=== PATIENT | male | born 1940 | race Caucasian/White ===

== ENCOUNTER 2023-12-25 18:42 | Emergency (ER) | payer OTHER, MEDICAID ==
[~2023-12-25] VITALS: Ht 175.3 cm; Wt 79.4 kg
[~2023-12-25 18:42] MED LIST: NYST5ORA PO
[2023-12-25 18:48] VITALS: TEMP 98.3
[2023-12-25 19:06] LABS: BASOPHILS % (AUTO) 0.3 % (0.0-2.0); EOSINOPHILS # (AUTO) 0.1 K/uL (0.0-0.7); EOSINOPHILS % (AUTO) 1.1 % (0.0-6.0); HEMATOCRIT 37 % (39-51); HEMOGLOBIN 12.1 g/dL (13.5-17.5); LYMPHOCYTES # (AUTO) 2.1 K/uL (0.8-4.8); LYMPHOCYTES % (AUTO) 21.2 % (20.0-44.0); MEAN CORPUSCULAR HEMOGLOBIN 28 PG (26.0-33.0); MEAN CORPUSCULAR HGB CONC 32 g/dl (31.0-36.0); MEAN CORPUSCULAR VOLUME 87 fL (80-96); MONOCYTES # (AUTO) 0.8 K/uL (0.1-1.30); MONOCYTES % (AUTO) 8.2 % (2.0-12.0); NEUTROPHILS # (AUTO) 6.9 K/uL (1.8-8.9); NEUTROPHILS % (AUTO) 69.2 % (43.0-81.0); PLATELET COUNT (AUTO) 244 K/uL (150-450); RED BLOOD CELL COUNT(AUTO) 4.26 MIL/uL (4.5-6.0); RED CELL DISTRIBUTION WIDTH 14.3 % (11.5-15.0); WHITE BLOOD COUNT (AUTO) 9.9 K/uL (4.3-11.0)
[2023-12-25 19:12] LABS: CALCIUM, SERUM 8.9 mg/dL (8.5-10.1); CARBON DIOXIDE 30 mmol/L (21-32); CHLORIDE 99 mmol/L (98-107); CREATININE 1.3 mg/dL (0.6-1.3); GLUCOSE 124 mg/dL (74-106); POTASSIUM 4.8 mmol/L (3.5-5.1); SODIUM SERUM 135 mmol/L (136-145); UREA NITROGEN, BLOOD 19 mg/dL (7-18)
[2023-12-25] MEDS ORDERED: PYRI60TA PO (19:12)
[2023-12-25] MEDS ORDERED: ATOR20TA PO (19:12)
[2023-12-25] MEDS ORDERED: POTA8CAP20 PO (19:12)
[2023-12-25] MEDS ORDERED: [UNRECOGNIZED DRUG - CODE] PO (19:12)
[2023-12-25] MEDS ORDERED: TAMS-12 PO (19:12)
[2023-12-25] MEDS ORDERED: LORA10TA68 PO (19:12)
[2023-12-25] MEDS ORDERED: FAMO20TA8 PO (19:12)
[2023-12-25] MEDS ORDERED: FURO-145 PO (19:12)
[2023-12-25] MEDS ORDERED: TRAM50TA2 PO (19:12)
[2023-12-25 19:20] LABS: ALANINE AMINOTRANSFERASE 27 U/L (12-78); ALBUMIN 2.7 g/dL (3.4-5.0); ALKALINE PHOSPHATASE 95 U/L (46-116); ASPARTATE AMINOTRANSFERASE 19 U/L (15-37); BILIRUBIN,DIRECT 0.1 mg/dL (0.0-0.2); BILIRUBIN,TOTAL 0.4 mg/dL (0.2-1.0)
[2023-12-25 19:22] LABS: INR 1.01 (0.91-1.10); PARTIAL THROMBOPLASTIN TIME 29.3 SEC (24.3-34.3); PROTHROMBIN TIME 10.7 SECS (9.2-11.1)
[2023-12-25 19:33] LABS: CHOLESTEROL 132 mg/dL (<200); HDL CHOLESTEROL 48 mg/dL (40-60); LDL 65 mg/dL (0-99); TRIGLYCERIDES 87 mg/dL (30-150)
[2023-12-25] MEDS ORDERED: CT SWABBABLE VALVE TRANS SET 1 EA INFUS.SET MC ONE (19:35)
[2023-12-25] MEDS ORDERED: IV NS 0.9% 250 ML IV ONE (19:35)
[2023-12-25] MEDS ORDERED: IOHEXOL-350 100 ML VIAL IV ONE (19:35)
[2023-12-25] MEDS: CLOPIDOGREL BISULFATE 300 MG TABLET PO ONE (20:10)
[2023-12-25 20:35] LABS: APPEARANCE,URINE Clear (CLEAR); BILIRUBIN,URINE Negative (NEGATIVE); BLOOD, URINE Negative Ery/uL (NEGATIVE); COLOR,URINE YELLOW (YELLOW); KETONES,URINE Negative (NEGATIVE); LEUKOCYTE ESTERASE ,URINE Negative (NEGATIVE); NITRITE, URINE Negative (NEGATIVE); PROTEIN,URINE Negative (NEGATIVE); UGLUCOSE Negative (NEGATIVE); UROBILINOGEN,URINE 0.2 EU/dL (0.2)
[2023-12-26 04:29] VITALS: BP 95/72; O2SAT 99
[2023-12-26] MEDS ORDERED: CLOPIDOGREL BISULFATE 75 MG TABLET PO SCH (09:00)
== END 2023-12-26 05:55 | disposition short-term general hospital (02) ==
LOC: ER 18:50
DX: R47.81 Slurred speech (principal); I10 Essential (primary) hypertension; G70.00 Myasthenia gravis without (acute) exacerbation; K21.9 Gastro-esophageal reflux disease without esophagitis; Z86.73 Personal history of transient ischemic attack (TIA), and cerebral infarction without residual deficits; Z88.8 Allergy status to other drugs, medicaments and biological substances; Z20.822 Contact with and (suspected) exposure to COVID-19
CPT/HCPCS: 99291; 70498; 87426; 80061; 93005; 70496; 85025; 80048; 80076; 81003; 36415; 84484; 85730; 87081; 70450; J7030; J7050; Q9967